=== PATIENT | female | born 1965 | race American Indian/Alaskan Native ===

== ENCOUNTER 2017-05-27 07:41 | Emergency (ER) | payer OTHER ==
[2017-05-27 08:19] LABS: Bacteria,Urine 1+ /HPF (Negative); Bilirubin,Urine NEG (Negative); Blood,Urine NEG (Negative); Ketones,Urine NEG (Negative); Leukocyte Esterase,Urine LG (Negative); Nitrite,Urine NEG (Negative); Urobilinogen,Urine < 2.0 mg/dL (<2.0)
[2017-05-27 08:26] LABS: WBC,Urine > 182.0 /HPF (0.0-6.0)
[2017-05-27] MEDS ORDERED: LEVAQUIN 500MG/100ML 500 MG/100 ML BAG IV ONE (09:37)
[2017-05-27] MEDS ORDERED: NACL 0.9% 1000 ML 1,000 ML IV ONE (09:37)
[2017-05-27 10:00] LABS: Basophils % (Auto) 0.4 % (0.0-1.8); Eosinophils % (Auto) 1.2 % (0.0-4.3); Hematocrit 35.4 % (30.3-42.9); Hemoglobin 11.4 gm/dl (10.1-14.3); Mean Corpuscular HGB Conc 32 % (30-34); Mean Corpuscular Hemoglobin 30 pg (28-32); Mean Corpuscular Volume 92 fl (79-97); Platelet Count 254 K/mm3 (140-440); Red Blood Count 3.84 M/mm3 (3.65-5.03); Red Cell Distribution Width 12.8 % (13.2-15.2); White Blood Count 5.8 K/mm3 (4.5-11.0)
[2017-05-27] MEDS ORDERED: ULTRAM PO ONE (10:10)
[2017-05-27 10:11] LABS: Anion Gap 19 mmol/L; BUN/Creatinine Ratio 30; Blood Urea Nitrogen 18 mg/dL (7-17); Calcium 9.3 mg/dL (8.4-10.2); Carbon Dioxide 24 mmol/L (22-30); Chloride 100.4 mmol/L (98-107); Glucose 91 mg/dL (65-100); Potassium 3.9 mmol/L (3.6-5.0); Sodium 139 mmol/L (137-145)
--- NOTE | 2017-05-27 10:11 | Emergency Department Report ---
ED Female HPI - General Chief complaint: Abdominal Pain Stated complaint: PAINFUL URINATIONS/BACK PAIN Time Seen by Provider: 05/27/17 10:09 Source: patient, RN notes reviewed, old records reviewed Mode of arrival: Ambulatory Limitations: No Limitations - History of Present Illness -: Gradual Radiation: L flank Severity: mild Quality: aching Consistency: constant Improves with: none Worsens with: none Are you Now?: No Associated Symptoms: dysuria. denies: vaginal discharge, vaginal bleeding, abdominal pain, nausea/vomiting, fever/chills, headaches, loss of appetite, hematuria, rash, seizure, shortness of breath, syncope, weakness - Related Data Sexually active: Yes (1 partner; no vag bleed or dc; lmp 6 m ago; perimeno) Previous Rx's Medication Instructions Recorded Last Taken Type Ciprofloxacin HCl [Cipro] 500 mg PO BID #20 tablet 05/27/17 Unknown Rx Phenazopyridine [Pyridium] 100 mg PO TID PRN #12 tab 05/27/17 Unknown Rx traMADol [Ultram] 50 mg PO Q6HR PRN #12 tablet 05/27/17 Unknown Rx Allergies Allergy/AdvReac Type Severity Reaction Status Date / Time codeine Allergy Vomiting Verified 05/27/17 07:43 ED Review of Systems ROS: Stated complaint: PAINFUL URINATIONS/BACK PAIN Other details as noted in HPI Comment: All other systems reviewed and negative Constitutional: denies: fever, malaise ENT: denies: throat pain Respiratory: denies: cough Cardiovascular: denies: chest pain, dyspnea on exertion Endocrine: increased thirst. denies: excessive sweating, flushing, intolerance to cold, intolerance to heat, increased urine, unexplained weight gain, unexplained weight loss Gastrointestinal: denies: abdominal pain, nausea, vomiting, diarrhea, constipation, hematemesis, melena Genitourinary: dysuria, frequency, other (menopausal). denies: hematuria, discharge, abnormal menses Musculoskeletal: back pain (l started bf urinary s/s) Skin: denies: rash, lesions Neurological: denies: headache, weakness Psychiatric: denies: anxiety, depression Hematological/Lymphatic: denies: easy bleeding ED Past Medical Hx - Past Medical History Previous Medical History?: No - Surgical History Past Surgical History?: No - Family History Family history: no significant - Social History Smoking Status: Never Smoker Substance Use Type: Alcohol - Medications Home Medications: Home Medications Medication Instructions Recorded Confirmed Last Taken Type Ciprofloxacin HCl [Cipro] 500 mg PO BID #20 tablet 05/27/17 Unknown Rx Phenazopyridine [Pyridium] 100 mg PO TID PRN #12 tab 05/27/17 Unknown Rx traMADol [Ultram] 50 mg PO Q6HR PRN #12 tablet 05/27/17 Unknown Rx ED Physical Exam - General Limitations: No Limitations General appearance: alert, in no apparent distress - Head Head exam: Present: atraumatic - Eye Eye exam: Present: PERRL - ENT ENT exam: Present: normal exam, mucous membranes dry - Neck Neck exam: Present: normal inspection - Respiratory Respiratory exam: Present: normal lung sounds bilaterally - Cardiovascular Cardiovascular Exam: Present: regular rate, normal rhythm (hr 90 on exam) - GI/Abdominal GI/Abdominal exam: Present: soft, normal bowel sounds. Absent: distended, tenderness, guarding, rebound, rigid, diminished bowel sounds - Rectal Rectal exam: Present: deferred - Extremities Exam Extremities exam: Present: normal inspection, full ROM, normal capillary refill. Absent: tenderness - Back Exam Back exam: Present: normal inspection, full ROM. Absent: tenderness, CVA tenderness (R), CVA tenderness (L), muscle spasm - Neurological Exam Neurological exam: Present: alert, oriented X3, CN II-XII intact, normal gait, reflexes normal - Psychiatric Psychiatric exam: Present: normal affect, normal mood - Skin Skin exam: Present: warm, dry, intact ED Course Vital Signs 05/27/17 07:44 Temperature 98.2 F Pulse Rate 100 H Respiratory 18 Rate Blood Pressure 167/84 - Reevaluation(s) Reevaluation #1: 05/27/17 to er w dysuria and l flank pain no fever no cva tenderness no pain suggestive of stone- not severe as in stone-only achy-she is not even sure it is related 1 sexual partner perimenopausal last menst 6 m ago no vag dc and not concerned for std no n/v no abd pain no diaphoresis labs noted wbc n ua noted-wbc inc no blood 1 L NS and levaquin IV ultram for pain HR 90 on exam discussed poc w pt. Reevaluation #2: 05/27/17 11:12 pt reevaluated vss nad ambulatory reports feeling better uptdate on dc poc will follow up as instructed ED Medical Decision Making - Lab Data Result diagrams: 05/27/17 09:42 05/27/17 09:42 - Medical Decision Making see note - Differential Diagnosis uti v stone Critical care attestation.: If time is entered above; I have spent that time in minutes in the direct care of this critically ill patient, excluding procedure time. ED Disposition Clinical Impression: Pyelonephritis Disposition: DC-01 TO HOME OR SELFCARE Is pt being admited?: No Does the pt Need Aspirin: No Condition: Stable Instructions: Menopause (ED), Urinary Tract Infection in Women (ED), Dysuria ( ED) Additional Instructions: drink plenty of water meds as ordered today take cipro until completely gone follow up with pcp upon completion of your antibiotic to be sure this has resolved follow up with obgyn given you perimenopausal state- Prescriptions: Ciprofloxacin HCl [Cipro] 500 mg PO BID #20 tablet Phenazopyridine [Pyridium] 100 mg PO TID PRN #12 tab PRN Reason: Pain traMADol [Ultram] 50 mg PO Q6HR PRN #12 tablet PRN Reason: Pain Referrals: PRIMARY CAREMD [Primary Care Provider] - 3-5 Days CHRISTIANO STEWART MD [Staff Physician] - 3-5 Days DARINEL WALKER MD [Referring] - 3-5 Days PAUL FOX MD [Referring] - 3-5 Days Time of Disposition: 10:47
[2017-05-27 11:48] VITALS: BP 146/84
== END 2017-05-27 11:47 | disposition home or self-care (01) ==
LOC: ED 07:41
DX: N12 Tubulo-interstitial nephritis, not specified as acute or chronic (principal); Z88.5 Allergy status to narcotic agent
CPT/HCPCS: 36415; 80048; 81001; 82962; 83880; 85025; 87076; 87086; 87186; 96365; 99283; J1956; J7030

== ENCOUNTER 2018-08-16 15:19 | Emergency (ER) | payer OTHER ==
[2018-08-16 15:54] VITALS: BP 145/89
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
--- NOTE | 2018-08-16 18:11 | XRay Report ---
FINAL REPORT EXAM: XR SPINE LUMBOSACRAL 2-3V HISTORY: low back pain TECHNIQUE: AP, lateral and lumbosacral spot views of the lumbar spine. PRIORS: None. FINDINGS: There are five lumbar type vertebral bodies. Normal alignment. No compression fracture. The disc spaces are maintained. The paravertebral soft tissues are normal. IMPRESSION: Normal lumbar spine.
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
== END 2018-08-16 18:50 | disposition home or self-care (01) ==
LOC: ED 15:19
DX: S16.1XXA Strain of muscle, fascia and tendon at neck level, initial encounter (principal); S09.90XA Unspecified injury of head, initial encounter; Z88.5 Allergy status to narcotic agent; V89.2XXA Person injured in unspecified motor-vehicle accident, traffic, initial encounter; Y93.89 Activity, other specified; Y92.488 Other paved roadways as the place of occurrence of the external cause; Y99.8 Other external cause status
CPT/HCPCS: 70450; 72100; 72125; 99284

== ENCOUNTER 2019-02-18 17:22 | Emergency (ER) | payer OTHER ==
[2019-02-18] MEDS ORDERED: DECADRON IM ONE ×2 (17:55→17:57)
[2019-02-18] MEDS ORDERED: TORADOL IM ONE ×3 (17:55→17:59)
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
[2019-02-18 17:56] VITALS: BP 156/88
[2019-02-18] MEDS ORDERED: DECADRON ONE (18:00)
[2019-02-18] MEDS ORDERED: TORADOL ONE (18:00)
== END 2019-02-18 18:26 | disposition home or self-care (01) ==
LOC: ED 17:22
DX: M54.32 Sciatica, left side (principal); Z79.899 Other long term (current) drug therapy; Z88.5 Allergy status to narcotic agent
CPT/HCPCS: 96372; 99282; J1100; J1885

== ENCOUNTER 2020-08-25 09:44 | Emergency (ER) | payer OTHER ==
[2020-08-25] MEDS ORDERED: KETOROLAC 60 MG/2 ML INJ IM ONE (10:18)
--- NOTE | 2020-08-25 10:26 | Emergency Department Report ---
ED Back Pain/Injury HPI - General Chief Complaint: Back Pain/Injury Stated Complaint: LEFT BACK AND LEG PAIN Time Seen by Provider: 08/25/20 10:14 Source: patient Limitations: No Limitations - History of Present Illness Initial Comments: pt is a 55 yo female who presents to the ED with c/o left lower back pain that began yesterday. she states the pain radiates to her left leg. she states that she was picking something out of the bottom of the refrigerator and believes she bent down too low when lifting something out of the fridge. she denies any fall or significant trauma. she denies any fever, n/v/d, numbness, weakness or bowel or bladder incontinence. pmhx of sciatica and states it feels similar, she states she has not had an exacerbation in a couple years. allergy:codeine - Related Data Previous Rx's Medication Instructions Recorded Last Taken Type Ciprofloxacin HCl [Cipro] 500 mg PO BID #20 tablet 05/27/17 Unknown Rx Phenazopyridine [Pyridium] 100 mg PO TID PRN #12 tab 05/27/17 Unknown Rx traMADoL [Ultram] 50 mg PO Q6HR PRN #12 tablet 05/27/17 Unknown Rx Ketorolac [Toradol] 10 mg PO Q6H PRN #15 tablet 08/16/18 Unknown Rx methOCARBAMOL [Robaxin] 750 mg PO Q8H PRN #21 tablet 08/16/18 Unknown Rx Cyclobenzaprine [Flexeril] 10 mg PO TID PRN #10 tablet 02/18/19 Unknown Rx Naproxen [Naprosyn] 500 mg PO BID PRN #20 tablet 02/18/19 Unknown Rx Menthol/Camphor [Roundup Mobile 1 applicatio TP BID #18 oint...g. 08/25/20 Unknown Rx Ointment] Naproxen [EC-Naprosyn] 500 mg PO BID PRN #20 tablet. 08/25/20 Unknown Rx methOCARBAMOL [Robaxin TAB] 500 mg PO BID PRN #20 tab 08/25/20 Unknown Rx predniSONE [Deltasone] 20 mg PO DAILY 5 Days #5 tablet 08/25/20 Unknown Rx Allergies Allergy/AdvReac Type Severity Reaction Status Date / Time codeine Allergy Vomiting Verified 05/27/17 07:43 ED Review of Systems ROS: Stated complaint: LEFT BACK AND LEG PAIN Other details as noted in HPI Comment: All other systems reviewed and negative ED Past Medical Hx - Past Medical History Previous Medical History?: No Additional medical history: RECURRENT BACK PAIN - Surgical History Past Surgical History?: No - Social History Smoking Status: Never Smoker Substance Use Type: None - Medications Home Medications: Home Medications Medication Instructions Recorded Confirmed Last Taken Type Ciprofloxacin HCl [Cipro] 500 mg PO BID #20 tablet 05/27/17 Unknown Rx Phenazopyridine [Pyridium] 100 mg PO TID PRN #12 tab 05/27/17 Unknown Rx traMADoL [Ultram] 50 mg PO Q6HR PRN #12 tablet 05/27/17 Unknown Rx Ketorolac [Toradol] 10 mg PO Q6H PRN #15 tablet 08/16/18 Unknown Rx methOCARBAMOL [Robaxin] 750 mg PO Q8H PRN #21 tablet 08/16/18 Unknown Rx Cyclobenzaprine [Flexeril] 10 mg PO TID PRN #10 tablet 02/18/19 Unknown Rx Naproxen [Naprosyn] 500 mg PO BID PRN #20 tablet 02/18/19 Unknown Rx Menthol/Camphor [Roundup Mobile 1 applicatio TP BID #18 oint...g. 08/25/20 Unknown Rx Ointment] Naproxen [EC-Naprosyn] 500 mg PO BID PRN #20 tablet.dr 08/25/20 Unknown Rx methOCARBAMOL [Robaxin TAB] 500 mg PO BID PRN #20 tab 08/25/20 Unknown Rx predniSONE [Deltasone] 20 mg PO DAILY 5 Days #5 tablet 08/25/20 Unknown Rx ED Physical Exam - General Limitations: No Limitations General appearance: alert, in no apparent distress - Head Head exam: Present: atraumatic, normocephalic - Eye Eye exam: Present: normal appearance - ENT ENT exam: Present: mucous membranes moist - Neck Neck exam: Present: normal inspection, full ROM. Absent: tenderness - Respiratory Respiratory exam: Present: normal lung sounds bilaterally. Absent: respiratory distress, wheezes, rales, rhonchi, stridor, chest wall tenderness, accessory muscle use, decreased breath sounds, prolonged expiratory - Cardiovascular Cardiovascular Exam: Present: regular rate, normal rhythm, normal heart sounds. Absent: systolic murmur, diastolic murmur, rubs, gallop - Back Exam Back exam: Present: normal inspection, full ROM, paraspinal tenderness (left sided lumbar paraspinal muscular ttp, no midline C-spine, T-spine or L-spine ttp, no step offs, no deformities). Absent: vertebral tenderness - Neurological Exam Neurological exam: Present: alert, oriented X3, CN II-XII intact, normal gait. Absent: motor sensory deficit - Psychiatric Psychiatric exam: Present: normal affect, normal mood - Skin Skin exam: Present: warm, dry, intact ED Course Vital Signs 08/25/20 08/25/20 08/25/20 10:11 10:46 10:52 Temperature 98.6 F 98.6 F Pulse Rate 98 H 82 Respiratory 20 16 20 Rate Blood Pressure 162/93 Blood Pressure 160/88 [Left] O2 Sat by Pulse 99 99 Oximetry ED Medical Decision Making - Lab Data Vital Signs 08/25/20 08/25/20 08/25/20 10:11 10:46 10:52 Temperature 98.6 F 98.6 F Pulse Rate 98 H 82 Respiratory 20 16 20 Rate Blood Pressure 162/93 Blood Pressure 160/88 [Left] O2 Sat by Pulse 99 99 Oximetry - Medical Decision Making pt is a 55 yo female who presents to the ED with c/o left lower back pain that began yesterday. she states the pain radiates to her left leg. she states that she was picking something out of the bottom of the refrigerator and believes she bent down too low when lifting something out of the fridge. she denies any fall or significant trauma. she denies any fever, n/v/d, numbness, weakness or bowel or bladder incontinence. pmhx of sciatica and states it feels similar, she states she has not had an exacerbation in a couple years. allergy:codeine. vss. on exam: left sided lumbar paraspinal muscular ttp, no midline C-spine, T-spine or L-spine ttp, no step offs, no deformities, no focal neuro deficits. Symptoms likely related to sciatica versus lumbar muscle strain. Patient has no red flag warning signs of back pain, no trauma, no unexplained weight loss, no neuro deficits, no fever, no IV drug use, no steroid use, no history of cancer. Patient given prescription for naproxen, Robaxin, prednisone, Roundup balm ointmen t. Advised patient please use medication as prescribed. please do stretches for sciatica. may use ice pack, heating pad, rest, epsom salt bath. follow up with a primary care doctor. return to the emergency room for any new or worsening symptoms. Critical care attestation.: If time is entered above; I have spent that time in minutes in the direct care of this critically ill patient, excluding procedure time. ED Disposition Clinical Impression: Low back pain Qualifiers: Chronicity: acute Back pain laterality: left Sciatica presence: with sciatica Sciatica laterality: sciatica of left side Qualified Code(s): M54.42 - Lumbago with sciatica, left side Disposition: TO HOME OR SELFCARE Is pt being admited?: No Does the pt Need Aspirin: No Condition: Stable Instructions: Sciatica, Lumbar Strain Additional Instructions: please use medication as prescribed. please do stretches for sciatica. may use ice pack, heating pad, rest, epsom salt bath. follow up with a primary care doctor. return to the emergency room for any new or worsening symptoms. Prescriptions: predniSONE [Deltasone] 20 mg PO DAILY 5 Days #5 tablet Naproxen [EC-Naprosyn] 500 mg PO BID PRN #20 tablet.dr PRN Reason: pain methOCARBAMOL [Robaxin TAB] 500 mg PO BID PRN #20 tab PRN Reason: pain Menthol/Camphor [Roundup Mobile Ointment] 1 applicatio TP BID #18 oint...g. Referrals: NASIR LABOY MD [Staff Physician] - 2-3 Days [facility] [Provider Group] - 2-3 Days BENJAMIN CLEMONS MD [Staff Physician] - 2-3 Days Forms: Work/School Release Form(ED) Time of Disposition: 10:26 Print Language: [place]
[2020-08-25 10:54] VITALS: BP 160/88
== END 2020-08-25 10:54 | disposition home or self-care (01) ==
LOC: ED 09:44
DX: M54.5 Low back pain (principal); Z79.899 Other long term (current) drug therapy; Z88.6 Allergy status to analgesic agent
CPT/HCPCS: 96372; 99282; J1885

== ENCOUNTER 2022-02-03 18:48 | Emergency (ER) | payer OTHER ==
[2022-02-03] MEDS ORDERED: IBUPROFEN 800 MG TAB PO ONE (22:11)
[2022-02-03] MEDS ORDERED: AMOXICILLIN/K CLAV 875/125MG TAB PO ONE (22:11)
--- NOTE | 2022-02-03 22:34 | Emergency Department Report ---
ED General Adult HPI - General Chief complaint: Earache Stated complaint: BACK EAR PAIN/BACK PAIN Time Seen by Provider: 02/03/22 22:11 Source: patient Mode of arrival: Ambulatory Limitations: No Limitations - History of Present Illness Initial comments: Patient 56-year-old female who presents for right ear pain and malaise low-grade fever for the past 3 days. Patient has secondary complaint of 4/10 back pain which is a chronic problem. Patient denies decreased hearing there is no ear drainage. There is sinus pressure there is no sore throat. No coughing no wheezing symptoms are exacerbated by activity and movement. Symptoms are relieved by nothing tried. Patient has not noted T-max at home no fever noted in triage today. Severity scale (0 -10): 8 - Related Data Previous Rx's Medication Instructions Recorded Last Taken Type Ciprofloxacin HCl [Cipro] 500 mg PO BID #20 tablet 05/27/17 Unknown Rx Phenazopyridine [Pyridium] 100 mg PO TID PRN #12 tab 05/27/17 Unknown Rx traMADoL [Ultram] 50 mg PO Q6HR PRN #12 tablet 05/27/17 Unknown Rx Ketorolac [Toradol] 10 mg PO Q6H PRN #15 tablet 08/16/18 Unknown Rx methOCARBAMOL [Robaxin] 750 mg PO Q8H PRN #21 tablet 08/16/18 Unknown Rx Cyclobenzaprine [Flexeril] 10 mg PO TID PRN #10 tablet 02/18/19 Unknown Rx Naproxen [Naprosyn] 500 mg PO BID PRN #20 tablet 02/18/19 Unknown Rx Menthol/Camphor [[place] 1 applicatio TP BID #18 oint...g. 08/25/20 Unknown Rx Ointment] Naproxen [EC-Naprosyn] 500 mg PO BID PRN #20 tablet.dr 08/25/20 Unknown Rx methOCARBAMOL [Robaxin TAB] 500 mg PO BID PRN #20 tab 08/25/20 Unknown Rx predniSONE [Deltasone] 20 mg PO DAILY 5 Days #5 tablet 08/25/20 Unknown Rx Amoxicillin [Trimox CAP] 500 mg PO Q8H 7 Days #21 capsule 02/03/22 Unknown Rx Cyclobenzaprine [Flexeril] 10 mg PO BID PRN #12 tab 02/03/22 Unknown Rx Menthol/Camphor [[place] 1 applicatio TP QID PRN #1 tube 02/03/22 Unknown Rx Ointment] Naproxen 500 mg PO BID PRN #30 tab 02/03/22 Unknown Rx Allergies Allergy/AdvReac Type Severity Reaction Status Date / Time codeine Allergy Vomiting Verified 05/27/17 07:43 ED Review of Systems ROS: Stated complaint: BACK EAR PAIN/BACK PAIN Other details as noted in HPI Constitutional: malaise Eyes: denies: eye pain, eye discharge, vision change ENT: ear pain, congestion. denies: throat pain, dental pain, hearing loss, epistaxis Respiratory: denies: cough, shortness of breath, wheezing Cardiovascular: denies: chest pain, palpitations Endocrine: no symptoms reported Gastrointestinal: denies: abdominal pain, nausea, vomiting, diarrhea Genitourinary: denies: urgency, dysuria, discharge Musculoskeletal: denies: back pain, joint swelling, arthralgia Skin: denies: rash, lesions Neurological: denies: headache, weakness, paresthesias Psychiatric: denies: anxiety, depression Hematological/Lymphatic: denies: easy bleeding, easy bruising ED Past Medical Hx - Past Medical History Additional medical history: RECURRENT BACK PAIN - Social History Smoking Status: Never Smoker Substance Use Type: None - Medications Home Medications: Home Medications Medication Instructions Recorded Confirmed Last Taken Type Ciprofloxacin HCl [Cipro] 500 mg PO BID #20 tablet 05/27/17 Unknown Rx Phenazopyridine [Pyridium] 100 mg PO TID PRN #12 tab 05/27/17 Unknown Rx traMADoL [Ultram] 50 mg PO Q6HR PRN #12 tablet 05/27/17 Unknown Rx Ketorolac [Toradol] 10 mg PO Q6H PRN #15 tablet 08/16/18 Unknown Rx methOCARBAMOL [Robaxin] 750 mg PO Q8H PRN #21 tablet 08/16/18 Unknown Rx Cyclobenzaprine [Flexeril] 10 mg PO TID PRN #10 tablet 02/18/19 Unknown Rx Naproxen [Naprosyn] 500 mg PO BID PRN #20 tablet 02/18/19 Unknown Rx Menthol/Camphor [[place] 1 applicatio TP BID #18 oint...g. 08/25/20 Unknown Rx Ointment] Naproxen [EC-Naprosyn] 500 mg PO BID PRN #20 tablet. 08/25/20 Unknown Rx methOCARBAMOL [Robaxin TAB] 500 mg PO BID PRN #20 tab 08/25/20 Unknown Rx predniSONE [Deltasone] 20 mg PO DAILY 5 Days #5 tablet 08/25/20 Unknown Rx Amoxicillin [Trimox CAP] 500 mg PO Q8H 7 Days #21 capsule 02/03/22 Unknown Rx Cyclobenzaprine [Flexeril] 10 mg PO BID PRN #12 tab 02/03/22 Unknown Rx Menthol/Camphor [[place] 1 applicatio TP QID PRN #1 tube 02/03/22 Unknown Rx Ointment] Naproxen 500 mg PO BID PRN #30 tab 02/03/22 Unknown Rx ED Physical Exam - General Limitations: No Limitations General appearance: alert, in no apparent distress - Head Head exam: Present: normocephalic, normal inspection - Eye Eye exam: Present: PERRL, EOMI. Absent: conjunctival injection, nystagmus Pupils: Present: normal accommodation - ENT ENT exam: Present: normal orophraynx, mucous membranes moist - Expanded ENT Exam Expanded TM/Canal exam: Erythema: Right TM, Canal Tenderness: Right TM - Neck Neck exam: Present: normal inspection, full ROM, lymphadenopathy. Absent: tenderness - Respiratory Respiratory exam: Present: normal lung sounds bilaterally. Absent: respiratory distress, wheezes - Cardiovascular Cardiovascular Exam: Present: regular rate, normal rhythm, normal heart sounds. Absent: systolic murmur, diastolic murmur, rubs, gallop - GI/Abdominal GI/Abdominal exam: Present: soft, normal bowel sounds. Absent: distended, tenderness - Rectal Rectal exam: Present: deferred - Extremities Exam Extremities exam: Present: normal inspection, full ROM, normal capillary refill. Absent: tenderness - Back Exam Back exam: Present: full ROM, paraspinal tenderness. Absent: vertebral tenderness - Expanded Back Exam Expanded Back exam: Absent: saddle anesthesia Back exam: Negative Straight Leg Raising: Left, Right - Neurological Exam Neurological exam: Present: alert, oriented X3, CN II-XII intact, normal gait, reflexes normal. Absent: motor sensory deficit - Expanded Neurological Exam Expanded Patient oriented to: Present: person, place, time Speech: Present: fluid speech Motor strength exam: RUE: 5, LUE: 5, RLE: 5, LLE: 5 Best Eye Response (Rossy): (4) open spontaneously Best Motor Response ([place]y): (6) obeys commands Best Verbal Response ([place]): (5) oriented [place] Total: 15 - Psychiatric Psychiatric exam: Present: normal affect, normal mood - Skin Skin exam: Present: warm, dry, intact, normal color. Absent: rash ED Course Vital Signs 02/03/22 02/03/22 19:49 22:26 Temperature 99.5 F Pulse Rate 106 H Respiratory 18 16 Rate Blood Pressure 153/90 O2 Sat by Pulse 99 Oximetry ED Medical Decision Making - Medical Decision Making Right TM mild erythema with pain to palpation and movement. Noted posterior auricle lymph. Plan treat for AOM, back pain is acute on chronic problem for this patient there is no dysuria frequency or urgency there is been no loss or decrease in bowel or bladder function. 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 Patient is requesting pain medicine and muscle relaxants. Patient does have a primary care doctor however. Plan DC to home, follow-up primary care doctor in 2 to 3 days. Patient verbalized agreement and understanding of discharge plan. Patient DC'd home in stable condition at this time. Critical care attestation.: If time is entered above; I have spent that time in minutes in the direct care of this critically ill patient, excluding procedure time. ED Disposition Clinical Impression: AOM (acute otitis media) Qualifiers: Otitis media type: unspecified Qualified Code(s): H66.90 - Otitis media, unspecified, unspecified ear Low back strain Qualifiers: Encounter type: initial encounter Qualified Code(s): S39.012A - Strain of muscle, fascia and tendon of lower back, initial encounter Disposition: HOME / SELF CARE / HOMELESS Is pt being admited?: No Does the pt Need Aspirin: No Condition: Stable Instructions: Low Back Sprain or Strain Rehab-SportsMed, Otitis Media, Adult, [id number] Additional Instructions: Take medication as prescribed, use moist heat therapy for low back, low back exercises. Follow-up with your doctor in 2 to 3 days. Return to emergency department should symptoms worsen. Prescriptions: Cyclobenzaprine [Flexeril] 10 mg PO BID PRN #12 tab PRN Reason: muscle spasm Naproxen 500 mg PO BID PRN #30 tab PRN Reason: pain Menthol/Camphor [[place] Ointment] 1 applicatio TP QID PRN #1 tube PRN Reason: pain Amoxicillin [Trimox CAP] 500 mg PO Q8H 7 Days #21 capsule Referrals: BENJAMIN CLEMONS MD [Staff Physician] - 3-5 Days Forms: Work/School Release Form(ED) Time of Disposition: 22:41
[2022-02-03 22:55] VITALS: BP 149/87
== END 2022-02-03 23:21 | disposition home or self-care (01) ==
LOC: ED 18:48
DX: S39.012A Strain of muscle, fascia and tendon of lower back, initial encounter (principal); H66.91 Otitis media, unspecified, right ear; Z91.09 Other allergy status, other than to drugs and biological substances; X58.XXXA Exposure to other specified factors, initial encounter; Y93.89 Activity, other specified; Y92.89 Other specified places as the place of occurrence of the external cause; Y99.8 Other external cause status
CPT/HCPCS: 99282